=== PATIENT | female | born 1950 | race Caucasian/White ===

== ENCOUNTER 2020-11-16 17:55 | Inpatient (IN) | payer BC, MEDICARE ==
[~2020-11-16] VITALS: Ht 165.1 cm; Wt 85.3 kg
[~2020-11-16 17:55] MED LIST: ALBUTEROL2.5 MG/3 M INH; ALDACTONE25 MG PO; ANUSOL HC SUPP1 SUPP PR; AUGMENTIN 875-1 EACH PO; CALCIUM 600 +1 EAC2 PO; COZAAR25 MG PO; DAILY VALUE1 EACH PO; DOXYCYCLINE HY100 MG PO; ECOTRIN81 MG PO; ESTRADIOL42.5 GM VG; FERROUS SULFAT325 M2 PO; FISH OIL 1,0001 EACH PO; FISH OIL 1,4001 EACH PO; FLEXERIL 10 MG10 MG PO; HUMIBID LA TAB600 MG PO; IPRAT-ALBUT 0.5-3 ML INH; LEVAQUIN500 MG PO; LIVALO4 MG PO; MULTIPLE VITAM1 EACH PO; NITROGLYCERIN6.5 MG PO; PLAQUENIL 200200 MG PO; PLAVIX 75 MG TA75 MG PO; PREDNISONE 5 MG5 MG PO; PREDNISONE 50 M50 MG PO; PROTONIX40 MG PO; SPIRIVA HANDIH18 MCG INH; SYMBICORT 16010.2 GM INH; TESSALON PERLE100 MG PO; TRICOR48 MG PO; VENTOLIN HFA 66.7 GM INH; ZOFRAN ODT 4 MG4 MG PO
[2020-11-16 18:39] LABS: HEMOGLOBIN 10.4 gm/dl (12.3-15.3); RED BLOOD COUNT 3.28 M/UL (4.00-5.10); WHITE BLOOD COUNT 5.9 K/UL (4.5-11.0)
[2020-11-16] MEDS ORDERED: LIPITOR TAB 2020 MG PO (22:01)
[2020-11-16] MEDS ORDERED: PROTONIX40 MG PO (22:02)
[2020-11-16] MEDS ORDERED: METHOCARBAMOL500 MG PO (22:03)
[2020-11-16] MEDS ORDERED: DESYREL 50 MG T50 MG PO (22:03)
[2020-11-16] MEDS ORDERED: MELATONIN10 MG PO (22:06)
[2020-11-16] MEDS ORDERED: MUCINEX600 MG PO (22:06)
[2020-11-16] MEDS ORDERED: MAGNESIUM400 M2 PO (22:07)
[2020-11-17 05:18] LABS: HEMOGLOBIN 9.2 gm/dl (12.3-15.3)
[2020-11-17 05:38] LABS: RED BLOOD COUNT 2.85 M/UL (4.00-5.10)
[2020-11-18 02:41] LABS: HEMOGLOBIN 9.8 gm/dl (12.3-15.3); RED BLOOD COUNT 3.07 M/UL (4.00-5.10); WHITE BLOOD COUNT 4.5 K/UL (4.5-11.0)
[2020-11-19 03:41] LABS: RED BLOOD COUNT 3.16 M/UL (4.00-5.10)
[2020-11-19] MEDS ORDERED: INCRUSE ELLI62.5 MCG INH (10:28)
[2020-11-20 04:30] LABS: HEMOGLOBIN 9.9 gm/dl (12.3-15.3); RED BLOOD COUNT 3.12 M/UL (4.00-5.10)
[2020-11-20 04:31] LABS: WHITE BLOOD COUNT 5.5 K/UL (4.5-11.0)
[2020-11-21] MEDS ORDERED: DOXYCYCLINE HY100 M2 PO (12:39)
[2020-11-21] MEDS ORDERED: NEBULIZER UNIT INH (12:45)
--- NOTE | 2020-11-21 15:35 | NUR ---
REPORT CALLED TO SUBHASH AT [facility].
== END 2020-11-21 16:41 | disposition home or self-care (01) | DRG 280 ==
LOC: ER1 17:55 → PROG CARE 20:41 → CDU 20:41 → MED SURG 4 20:41 → PROG CARE 11-17 06:08 → MED SURG 4 11-19 12:28
PROVIDERS: Emergency Medicine; Internal Medicine; ADMIT Internal Medicine
PROC: B24BZZZ Ultrasonography of Heart with Aorta (ICD-10-PCS; principal; 2020-11-17)
DX: I13.0 Hypertensive heart and chronic kidney disease with heart failure and stage 1 through stage 4 chronic kidney disease, or unspecified chronic kidney disease (principal); J96.22 Acute and chronic respiratory failure with hypercapnia; I21.A1 Myocardial infarction type 2; I50.33 Acute on chronic diastolic (congestive) heart failure; J96.21 Acute and chronic respiratory failure with hypoxia; J44.1 Chronic obstructive pulmonary disease with (acute) exacerbation; N18.30 Chronic kidney disease, stage 3 unspecified; I27.20 Pulmonary hypertension, unspecified; I08.1 Rheumatic disorders of both mitral and tricuspid valves; I65.23 Occlusion and stenosis of bilateral carotid arteries; I25.10 Atherosclerotic heart disease of native coronary artery without angina pectoris; Z20.822 Contact with and (suspected) exposure to COVID-19; R94.31 Abnormal electrocardiogram [ECG] [EKG]; D50.9 Iron deficiency anemia, unspecified; M34.9 Systemic sclerosis, unspecified; M06.9 Rheumatoid arthritis, unspecified; Z88.8 Allergy status to other drugs, medicaments and biological substances; Z83.3 Family history of diabetes mellitus; Z99.81 Dependence on supplemental oxygen; Z85.118 Personal history of other malignant neoplasm of bronchus and lung; Z95.5 Presence of coronary angioplasty implant and graft; Z79.02 Long term (current) use of antithrombotics/antiplatelets; Z79.82 Long term (current) use of aspirin; Z79.899 Other long term (current) drug therapy; Z87.891 Personal history of nicotine dependence
CPT/HCPCS: ECHO; 36415; 36600; 71045; 71046; 80048; 80053; 81001; 82550; 82553; 82803; 82962; 83690; 83735; 83874; 83880; 84484; 85025; 85027; 85610; 85730; 86140; 90471; 93005; 93270; 93306; 93880; 94640; 94660; 94664; 94760; 96374; 97110-GP-CQ; 97162; 99285; J1644; J1940; J2930; U0002

== ENCOUNTER 2020-12-19 15:17 | Inpatient (IN) | payer BC, MEDICARE ==
[~2020-12-19] VITALS: Ht 165.1 cm; Wt 73.0 kg
[~2020-12-19 15:17] MED LIST changes: +DESYREL 50 MG T50 MG PO; +DOXYCYCLINE HY100 M2 PO; +INCRUSE ELLI62.5 MCG INH; +LIPITOR TAB 2020 MG PO; +MAGNESIUM400 M2 PO; +MELATONIN10 MG PO; +METHOCARBAMOL500 MG PO; +MUCINEX600 MG PO; +NEBULIZER UNIT INH
[2020-12-19 16:33] LABS: HEMOGLOBIN 8.8 gm/dl (12.3-15.3); RED BLOOD COUNT 2.9 M/UL (4.00-5.10); WHITE BLOOD COUNT 7.2 K/UL (4.5-11.0)
[2020-12-19] MEDS ORDERED: LOSARTAN POTASS25 MG PO (22:25)
[2020-12-19] MEDS ORDERED: FUROSEMIDE20 MG PO (22:30)
[2020-12-19] MEDS ORDERED: CYCLOBENZAPRINE10 MG PO (22:33)
[2020-12-20 05:13] LABS: HEMOGLOBIN 9.5 gm/dl (12.3-15.3); RED BLOOD COUNT 3.09 M/UL (4.00-5.10)
[2020-12-20 05:21] LABS: WHITE BLOOD COUNT 9.6 K/UL (4.5-11.0)
[2020-12-21 05:32] LABS: HEMOGLOBIN 8.4 gm/dl (12.3-15.3); RED BLOOD COUNT 2.81 M/UL (4.00-5.10)
[2020-12-21 05:38] LABS: WHITE BLOOD COUNT 6.6 K/UL (4.5-11.0)
[2020-12-24 03:54] LABS: HEMOGLOBIN 8.6 gm/dl (12.3-15.3); RED BLOOD COUNT 2.85 M/UL (4.00-5.10); WHITE BLOOD COUNT 6.1 K/UL (4.5-11.0)
[2020-12-25 03:37] LABS: HEMOGLOBIN 9.1 gm/dl (12.3-15.3); RED BLOOD COUNT 3.06 M/UL (4.00-5.10)
--- NOTE | 2020-12-25 15:36 | NUR ---
1445 Patient returned to room per manager labor relations personnel. Awake, alert - denies pain/discomfort. Pressure dressings intact to bilateral groin sites. Patient instructed on orders to be flat in bed x 3hrs & head elevated at 30 degrees x 3 hours. Patient voiced understanding.
--- NOTE | 2020-12-25 15:42 | NUR ---
[id number] - No S/Sx's of bleeding noted to bilateral groin pressure dressings.
[2020-12-26 04:21] LABS: HEMOGLOBIN 9.2 gm/dl (12.3-15.3); RED BLOOD COUNT 3.08 M/UL (4.00-5.10); WHITE BLOOD COUNT 6.1 K/UL (4.5-11.0)
[2020-12-28 03:27] LABS: HEMOGLOBIN 9.3 gm/dl (12.3-15.3); RED BLOOD COUNT 3.05 M/UL (4.00-5.10)
[2020-12-28 03:30] LABS: WHITE BLOOD COUNT 7.9 K/UL (4.5-11.0)
[2020-12-31 04:47] LABS: HEMOGLOBIN 9.6 gm/dl (12.3-15.3); RED BLOOD COUNT 3.22 M/UL (4.00-5.10); WHITE BLOOD COUNT 8.1 K/UL (4.5-11.0)
--- NOTE | 2021-01-01 06:42 | NUR ---
CALLED REPORT TO PIETER AT [facility] IN [place] AT APPROX. 0615. PT IS GOING TO [facility] TO [facility].
== END 2021-01-01 09:16 | disposition short-term general hospital (02) | DRG 280 ==
LOC: ER1 15:17 → MED SURG 4 19:45 → CDU 19:45 → MED SURG 4 21:10
PROVIDERS: Internal Medicine; Internal Medicine Cardiovascular Disease; Physician Assistant Medical; ADMIT Hospitalist
PROC: 4A023N7 Measurement of Cardiac Sampling and Pressure, Left Heart, Percutaneous Approach (ICD-10-PCS; principal; 2020-12-25)
DX: I21.4 Non-ST elevation (NSTEMI) myocardial infarction (principal); I50.23 Acute on chronic systolic (congestive) heart failure; I13.0 Hypertensive heart and chronic kidney disease with heart failure and stage 1 through stage 4 chronic kidney disease, or unspecified chronic kidney disease; I74.5 Embolism and thrombosis of iliac artery; N17.9 Acute kidney failure, unspecified; J44.1 Chronic obstructive pulmonary disease with (acute) exacerbation; J96.11 Chronic respiratory failure with hypoxia; N18.30 Chronic kidney disease, stage 3 unspecified; E11.22 Type 2 diabetes mellitus with diabetic chronic kidney disease; E11.51 Type 2 diabetes mellitus with diabetic peripheral angiopathy without gangrene; E11.40 Type 2 diabetes mellitus with diabetic neuropathy, unspecified; Z20.822 Contact with and (suspected) exposure to COVID-19; E78.5 Hyperlipidemia, unspecified; D50.9 Iron deficiency anemia, unspecified; M34.9 Systemic sclerosis, unspecified; K21.9 Gastro-esophageal reflux disease without esophagitis; H54.62 Unqualified visual loss, left eye, normal vision right eye; G25.81 Restless legs syndrome; E04.2 Nontoxic multinodular goiter; Z85.118 Personal history of other malignant neoplasm of bronchus and lung; Z99.81 Dependence on supplemental oxygen; Z83.3 Family history of diabetes mellitus; Z87.891 Personal history of nicotine dependence
CPT/HCPCS: 0240U; 36415; 70450; 70498; 70553; 71045; 80048; 80053; 82550; 82553; 82728; 82962; 83540; 83550; 83735; 83874; 83880; 84484; 85025; 85027; 85610; 85652; 85730; 86140; 93005; 94640; 94664; 94760; 96365; 97162; 97166; 99285; A9577; C1769; J1644; J1650; J1940; J2250; J3010; J7040; Q9965; Q9967

== ENCOUNTER → 2021-01-24 | Outpatient (CLI) | payer BC, MEDICARE ==
[~2021-01-24] MED LIST changes: +CYCLOBENZAPRINE10 MG PO; +EFFEXOR XR37.5 MG PO; +FUROSEMIDE20 MG PO; +LOSARTAN POTASS25 MG PO
== END ==
LOC: LAB 18:25
DX: M31.6 Other giant cell arteritis (principal)
CPT/HCPCS: 85652; 86140

== ENCOUNTER 2021-02-08 01:31 | Inpatient (IN) | payer BC, MEDICARE ==
[~2021-02-08] VITALS: Ht 165.1 cm; Wt 66.4 kg
[~2021-02-08 01:31] MED LIST changes: -EFFEXOR XR37.5 MG PO
[2021-02-08 02:11] LABS: RED BLOOD COUNT 3.6 M/UL (4.00-5.10); WHITE BLOOD COUNT 14.6 K/UL (4.5-11.0)
[2021-02-08] MEDS ORDERED: EFFEXOR XR37.5 MG PO (22:29)
[2021-02-09 03:25] LABS: HEMOGLOBIN 10.3 gm/dl (12.3-15.3); RED BLOOD COUNT 3.48 M/UL (4.00-5.10)
[2021-02-09 03:28] LABS: WHITE BLOOD COUNT 10.8 K/UL (4.5-11.0)
[2021-02-10 04:51] LABS: HEMOGLOBIN 10.3 gm/dl (12.3-15.3); RED BLOOD COUNT 3.38 M/UL (4.00-5.10); WHITE BLOOD COUNT 9.7 K/UL (4.5-11.0)
[2021-02-11 04:33] LABS: RED BLOOD COUNT 3.31 M/UL (4.00-5.10); WHITE BLOOD COUNT 8.4 K/UL (4.5-11.0)
[2021-02-12 05:25] LABS: HEMOGLOBIN 9.9 gm/dl (12.3-15.3); RED BLOOD COUNT 3.27 M/UL (4.00-5.10); WHITE BLOOD COUNT 7.8 K/UL (4.5-11.0)
== END 2021-02-13 01:02 | disposition short-term general hospital (02) | DRG 291 ==
LOC: ER1 01:31 → MED SURG 4 04:20 → CDU 04:20 → MED SURG 4 04:50
PROVIDERS: Emergency Medicine; Internal Medicine; ADMIT Internal Medicine
DX: I13.0 Hypertensive heart and chronic kidney disease with heart failure and stage 1 through stage 4 chronic kidney disease, or unspecified chronic kidney disease (principal); J96.21 Acute and chronic respiratory failure with hypoxia; E43 Unspecified severe protein-calorie malnutrition; I50.41 Acute combined systolic (congestive) and diastolic (congestive) heart failure; I74.5 Embolism and thrombosis of iliac artery; J44.1 Chronic obstructive pulmonary disease with (acute) exacerbation; C34.90 Malignant neoplasm of unspecified part of unspecified bronchus or lung; Z20.822 Contact with and (suspected) exposure to COVID-19; N18.30 Chronic kidney disease, stage 3 unspecified; H54.62 Unqualified visual loss, left eye, normal vision right eye; K21.9 Gastro-esophageal reflux disease without esophagitis; E78.5 Hyperlipidemia, unspecified; I25.10 Atherosclerotic heart disease of native coronary artery without angina pectoris; I65.29 Occlusion and stenosis of unspecified carotid artery; I48.0 Paroxysmal atrial fibrillation; Z99.81 Dependence on supplemental oxygen; I25.2 Old myocardial infarction; Z82.49 Family history of ischemic heart disease and other diseases of the circulatory system; F41.9 Anxiety disorder, unspecified; D64.9 Anemia, unspecified; Z79.82 Long term (current) use of aspirin; Z79.02 Long term (current) use of antithrombotics/antiplatelets; H54.40 Blindness, one eye, unspecified eye
CPT/HCPCS: 0240U; 36415; 36600; 71045; 71046; 80048; 80053; 82550; 82553; 82803; 83605; 83735; 83874; 83880; 84484; 85025; 85027; 85379; 86140; 87040; 94640; 94664; 94760; 96365; 96375; 99285; C9113; J0696; J1650; J1940; J2920; J2930

== ENCOUNTER → 2021-05-14 | Outpatient (CLI) | payer BC, MEDICARE ==
[~2021-05-14] MED LIST changes: +EFFEXOR XR37.5 MG PO
== END ==
LOC: EXRD 13:45
DX: M81.0 Age-related osteoporosis without current pathological fracture (principal); M85.852 Other specified disorders of bone density and structure, left thigh
CPT/HCPCS: 77080